=== PATIENT | male | born 1975 | race Hispanic/Latino ===

== ENCOUNTER 2018-01-22 06:32 | Day surgery (SDC) | payer OTHER ==
[~2018-01-22] VITALS: Ht 175.3 cm; Wt 100.2 kg
[2018-01-22] MEDS ORDERED: SODIUM CHLORIDE 0.9% 1000ML 1,000 ML IV ONE (06:51)
[2018-01-22 07:52] VITALS: BP 114/66
[2018-01-22] MEDS ORDERED: PROPOFOL 10 MG/ML 20ML VIAL IV ONE ×3 (08:23→08:45)
[2018-01-22 08:53] VITALS: BP 127/79
[2018-01-22 09:29] LABS: BASOPHILS % (AUTO) 0.6 % (0.0-5.0); EOSINOPHILS % (AUTO) 2.4 % (0.0-8.0); HEMATOCRIT 42.7 % (42-54); LYMPHOCYTES % (AUTO) 28.1 % (21.0-51.0); MEAN CORPUSCULAR HEMOGLOBIN 32.6 pg (27.0-33.0); MEAN CORPUSCULAR VOLUME 90.5 fL (79-99); MONOCYTES % (AUTO) 11.7 % (3.0-13.0); NEUTROPHILS % (AUTO) 57.2 % (40.0-77.0); PLATELET COUNT (AUTO) 269 K/uL (130-400); RED BLOOD CELL COUNT(AUTO) 4.71 MIL/uL (4.50-6.20); RED CELL DISTRIBUTION WIDTH 12.8 % (11.0-15.5); WHITE BLOOD COUNT (AUTO) 5.7 K/uL (4.8-10.8)
[2018-01-22 09:54] LABS: CREATININE 0.9 mg/dL (0.5-1.5); POTASSIUM 4.4 mmol/L (3.5-5.1)
[2018-01-22 09:58] LABS: ALBUMIN 3.6 g/dL (3.5-5.0); BILIRUBIN,TOTAL 0.5 mg/dL (0.2-1.0); TOTAL PROTEIN, SERUM 6.4 g/dL (6.0-8.3)
== END 2018-01-22 09:46 | disposition home or self-care (01) ==
LOC: ENDO 06:32 → DAH 06:32 → ENDO 09:46
PROVIDERS: ATTEND Internal Medicine Gastroenterology
DX: D12.3 Benign neoplasm of transverse colon (principal); D37.4 Neoplasm of uncertain behavior of colon; K21.9 Gastro-esophageal reflux disease without esophagitis; K75.89 Other specified inflammatory liver diseases
CPT/HCPCS: 36415; 45380; 45381; 80053; 82378; 85025; 88305; A4606; J2704 ×3; J7030

== ENCOUNTER 2025-04-11 05:54 | Day surgery (SDC) | payer OTHER ==
[2025-04-10 10:33] LABS: BASOPHILS # (AUTO) 0.03 K/uL (0.00-0.20); BASOPHILS % (AUTO) 0.5 % (0.0-5.0); EOSINOPHILS # (AUTO) 0.13 K/uL (0.00-0.70); EOSINOPHILS % (AUTO) 2.2 % (0.0-8.0); IMMATURE GRANULOCYTE ABSOLUTE 0.02 K/uL (0-1); LYMPHOCYTES # (AUTO) 1.9 K/uL (1.0-4.8); LYMPHOCYTES % (AUTO) 31.7 % (21.0-51.0); MEAN CORPUSCULAR HEMOGLOBIN 32.6 pg (27.0-33.0); MEAN CORPUSCULAR HGB CONC 35.9 g/dL (32.0-36.0); MEAN CORPUSCULAR VOLUME 90.9 fL (79-99); MONOCYTES # (AUTO) 0.7 K/uL (0.1-1.0); MONOCYTES % (AUTO) 11.6 % (3.0-13.0); NEUTROPHILS # (AUTO) 3.2 K/uL (1.8-7.7); NEUTROPHILS % (AUTO) 53.7 % (40.0-77.0); PLATELET COUNT (AUTO) 321 K/uL (130-400); RED BLOOD CELL COUNT(AUTO) 4.84 MIL/uL (4.50-6.20); RED CELL DISTRIBUTION WIDTH 12.9 % (11.0-15.5)
[2025-04-10 10:41] LABS: CREATININE 0.9 mg/dL (0.5-1.3); POTASSIUM 3.8 mmol/L (3.5-5.1)
[2025-04-10 10:44] LABS: INR 0.99 (0.85-1.15); PROTHROMBIN TIME 10.5 SEC (9.6-11.6)
[2025-04-10 10:45] LABS: PARTIAL THROMBOPLASTIN TIME 27.6 SEC (26.3-35.5)
[2025-04-10 11:08] VITALS: BP 133/71; PULSE 61; RESP 18; TEMP 97.7
[2025-04-11] VITALS (13 sets, daily range): BP systolic 105–120; BP diastolic 62–75; PULSE 54–67; RESP 15–18; TEMP 96.1–97.7
[~2025-04-11] VITALS: Ht 177.8 cm; Wt 114.8 kg
[~2025-04-11 05:54] MED LIST: IBUP-2784 PO
[2025-04-11] MEDS ORDERED: LACTATED RINGERS 1000ML 1,000 ML IV ONE (06:22)
[2025-04-11] MEDS ORDERED: ceFAZolin SODIUM 2 GM VIAL ONE (06:22)
[2025-04-11] MEDS ORDERED: acetaMINOPHEN 100 ML ONE (06:37)
[2025-04-11] MEDS ORDERED: FAMOTIDINE 20MG VIAL IV ONE (06:37)
[2025-04-11] MEDS ORDERED: GABAPENTIN 300 MG CAPSULE ONE (06:37)
[2025-04-11] MEDS ORDERED: ROPivacaine 0.5% 5MG/ML 30ML ONE (06:43)
[2025-04-11] MEDS ORDERED: ketaMINE 50MG/ML SYRINGE 50 MG/ML DISP.SYRIN ONE (06:44)
[2025-04-11] MEDS ORDERED: LIDOCAINE PF 100MG/5ML (2%) SYRINGE 5ML ONE (06:49)
[2025-04-11] MEDS ORDERED: proPOFol 10 MG/ML 20ML VIAL IV ONE (06:50)
[2025-04-11] MEDS ORDERED: rocuRONium bROMide 10MG/1ML 5ML VL ONE (06:50)
[2025-04-11] MEDS ORDERED: FENTanyl CITRate PF 50 MCG/1 ML 2ML VIAL ONE (06:51)
[2025-04-11] MEDS: VANCOMYCIN KIT 1 GM/250 ML IV.KIT IV ONE (07:31)
[2025-04-11] MEDS: VANCOMYCIN 1G/250ML KIT 250 ML IV ONE (07:31)
[2025-04-11] MEDS: DiphenhydrAMINE HCL 50 MG/ML VIAL ONE (07:36)
[2025-04-11] MEDS ORDERED: EPINEPHrine 1 MG/ML 30ML VIAL IJ ONE (07:39)
[2025-04-11] MEDS: DiphenhydrAMINE HCL 50 MG/ML VIAL IV ONE (07:45)
[2025-04-11] MEDS: ceFAZolin SODIUM 3 GM VIAL IVPB ONE ×2 (08:15)
[2025-04-11] MEDS ORDERED: CYCL-309 PO (08:35)
[2025-04-11] MEDS ORDERED: HYDR-4060 PO (08:35)
[2025-04-11] MEDS ORDERED: ondanSETRON 4MG INJ ONE (08:43)
[2025-04-11] MEDS ORDERED: dexaMETHasone SOD PHOSPHATE 10MG/ML 1ML VIAL ONE (08:43)
[2025-04-11] MEDS ORDERED: NEOSTIGMINE METHYLSULFATE 1MG/ML IV ONE (10:48)
[2025-04-11] MEDS ORDERED: GLYCOPYRROLATE 0.2 MG/ML 5 ML VIAL ONE (10:48)
--- NOTE | 2025-04-11 12:22 | NUR ---
Full and complete discharge instructions given to Patient and Family both verbally and in writing. Explained Surgical procedure precautions and follow up. Right Shoulder incision site clean dry and intact. No evidence of bleeding, bruising or hematoma. Sling intact. Patient remains Neurovascularly intact. All questions answered. PIV removed with catheter tip intact. at bedside appearing supportive. W/C to POV with to home
--- NOTE | 2025-04-11 15:31 | OP ---
Operative Note: DATE OF PROCEDURE: 04/11/25 SURGEON: AMARI ZUNIGA MD MEASUREMENT AND SENSING TECHNICIAN: Orly Kumari ANESTHESIA: General and interscalene block ANESTHESIOLOGIST/HORSE SHOER: Geeta Mckee PREOPERATIVE DIAGNOSIS: Right shoulder rotator cuff tear, subacromial impingement, acromioclavicular joint osteoarthritis POSTOPERATIVE DIAGNOSIS: Right shoulder rotator cuff tear, subacromial impingement, acromioclavicular osteoarthritis, degenerative labral tearing, long head of biceps tendinitis PROCEDURE: Right shoulder arthroscopic rotator cuff repair, subacromial debridement, distal clavicle excision, debridement of labrum and long head of biceps ESTIMATED BLOOD LOSS: 10 cc FINDINGS: On insertion of the arthroscope into the joint we noted significant degenerative tearing of the labrum with ratty appearing long head of the biceps tendon. Additionally there was partial-thickness tearing of the supraspinatus with a proximally 20% of the fibers left intact adjacent to the biceps interval. Remainder rotator cuff appeared intact. Articular cartilage appeared reasonable. After debriding the labrum and long head of the biceps, we used our spinal needle to localize the region of partial-thickness tear. Then, we repositioned the arthroscope into the subacromial space. Subacromial debridement was performed and we were able to identify the spinal needle. On probing we noted thin rotator cuff tissue and completed the tear adjacent to the rotator interval. We then repaired this using a single mattress suture and single SwiveLock anchor. The distal clavicle was resected using the bur for a distance of approximately 8 mm. The 2 mm undersurface of the acromion and lateral spurs were removed using the bur. INDICATIONS: 41-year-old male with a history of right shoulder pain after injury at work. They were failing conservative management and found on MRI to have retracted tear of the supraspinatus and arthritis of the acromioclavicular joint. Clinically he also had symptomatic subacromial impingement. After discussion of the risk, benefits, and alternatives, the patient voluntarily agreed to undergo the aforementioned procedure. DESCRIPTION OF PROCEDURE: Patient was properly identified in the preoperative holding area. Surgical site marking was verified and surgery consent reviewed. The patient was then taken to the operating room and placed in supine position on the OR table. After induction of general anesthesia, preoperative antibiotics were given, all bony prominences were well-padded as the patient was transitioned into beachchair position. The right upper extremity was then prepped and draped in usual sterile fashion. Surgical timeout was done verifying correct surgery, side, site, and location to be performed. We then began the procedure by using an 18-gauge spinal needle to inject the shoulder joint with normal saline to distend the joint capsule. A posterior lateral portal was established using 11 blade and we inserted our arthroscope through this portal. We established an anterior portal using needle localization under direct visualization and placed a working cannula through this portal. We then performed a diagnostic arthroscopy with the aforementioned findings. Then we debrided the significant degenerative tearing of the labrum and ratty appearing long head of the biceps tendon using the ArthroCare Wand to smooth out the structures. Additionally there was partial-thickness tearing of the supraspinatus with approximately 20% of the fibers left intact adjacent to the biceps interval. We used our spinal needle to localize the region of partial- thickness tear. Then, we repositioned the arthroscope into the subacromial space. Subacromial debridement was performed and we were able to identify the spinal needle. On probing we noted thin rotator cuff tissue and completed the tear adjacent to the rotator interval. We then released the tear of the anterior portion of the supraspinatus. We debrided the footprint of the insertion site back to healthy bone. We then repaired this using a single mattress suture and single SwiveLock anchor. The distal clavicle was resected using the bur for a distance of approximately 8 mm from the articular surface. The 2 mm undersurface of the acromion and lateral spurs were removed using the bur. We then removed as much of the arthroscopic fluid as possible and removed the arthroscopic instruments and camera. We expressed some the remaining fluid from the surrounding soft tissues. 3-0 nylon was then used to close the skin portals. Sterile soft dressing was applied. Patient was then placed into a shoulder immobilizer, awakened from anesthesia, and taken the recovery room in stable condition. AMARI ZUNIGA MD Apr 11, 2025 15:31
== END 2025-04-11 12:27 | disposition home or self-care (01) ==
LOC: DAH 05:54
PROVIDERS: ATTEND Student in an Organized Health Care Education/Training Program
DX: S46.011A Strain of muscle(s) and tendon(s) of the rotator cuff of right shoulder, initial encounter (principal); M19.011 Primary osteoarthritis, right shoulder; M75.41 Impingement syndrome of right shoulder; S43.431A Superior glenoid labrum lesion of right shoulder, initial encounter; E66.9 Obesity, unspecified; Z90.49 Acquired absence of other specified parts of digestive tract; Z79.899 Other long term (current) drug therapy; Z79.01 Long term (current) use of anticoagulants; Z68.35 Body mass index [BMI] 35.0-35.9, adult; W17.2XXA Fall into hole, initial encounter; Y93.89 Activity, other specified; Y92.69 Other specified industrial and construction area as the place of occurrence of the external cause; Y99.0 Civilian activity done for income or pay
CPT/HCPCS: 80048; 85025; 85610; 85730; 36415; 29827; 29826; 29824; 64415; C1713; A4663; J7120 ×2; A4565; J0690 ×2; J1200; J3490 ×4; J3010; J1100; J0171 ×2; J2003; J2704; J2405; J2710; J3370; J2795; A6223; A4930; A4649; A5120; A4215; A4213; A4222; A4221; A4216; A4450; A4223 ×2